=== PATIENT | female | born 1930 | race Caucasian/White ===

== ENCOUNTER → 2018-02-04 | Outpatient (CLI) | payer MEDICARE, BC ==
[~2018-02-04] MED LIST: ASPIR-LOW81 MG PO; FOSAMAX PO; ZOCOR40 MG PO; ZOLOFT
== END ==
LOC: COL.PUL 10:59
DX: R05 Cough (principal); Z77.120 Contact with and (suspected) exposure to mold (toxic); Z87.891 Personal history of nicotine dependence

== ENCOUNTER 2020-04-21 18:07 | Emergency (ER) | payer MEDICARE, BC ==
[~2020-04-21] VITALS: Ht 152.4 cm; Wt 56.8 kg
[2020-04-21 18:11] VITALS: TEMP 97.4
[2020-04-21] MEDS ORDERED: REMERON30 MG PO (18:32)
[2020-04-21] MEDS ORDERED: CRESTOR 10MG10 MG PO (18:32)
[2020-04-21] MEDS ORDERED: PRINIVIL10 MG PO (18:32)
[2020-04-21] MEDS ORDERED: ZOLOFT 50MG50 MG PO (18:34)
[2020-04-21] MEDS ORDERED: NOVOLOG MIX 70/33 ML SQ (18:34)
[2020-04-21 18:48] LABS: BASO # 0.1 (0.0-0.2); BASO % 0.4 % (0.0-2.0); EOS # 0.3 (0.0-0.7); EOS % 1.7 % (0-4.0); GRAN # 13.5 (1.4-6.5); GRAN % 73.4 % (42.2-75.2); HEMOGLOBIN 11.7 g/dl (12.5-16.0); LYMPH # 3.1 (1.2-3.4); LYMPH % 16.8 % (20.0-51.0); MEAN CELL VOLUME 89 fl (80.0-100.0); MEAN CORPUSCULAR HEMOGLOBIN 28 pg (27.0-31.0); MEAN CORPUSCULAR HGB CONC 32 g/dl (33.0-37.0); MEAN PLATELET VOLUME 12.6 fl (7.4-10.4); MONO # 1.3 (0.1-0.6); MONO % 7.1 % (1.7-9.3); PLATELET COUNT 127 K/mm3 (130-400); RED BLOOD COUNT 4.18 M/mm3 (4.10-5.30); REDCELL DISTRIBUTION WIDTH-CV 14.7 % (11.5-14.5)
[2020-04-21 19:00] LABS: ALANINE AMINOTRANSFERASE 23 U/L (4-34); ALBUMIN 3.9 gm/dL (3.5-5.0); ALKALINE PHOSPHATASE 79 U/L (50-136); ANION GAP 10 mmol/L (7-16); AST,SGOT 30 U/L (15-37); BILIRUBIN,TOTAL 0.5 mg/dL (0.0-1.0); BLOOD UREA NITROGEN 30 mg/dL (7-17); CALCIUM 9.1 mg/dL (8.4-10.2); CARBON DIOXIDE 24 mmol/L (22-30); CHLORIDE 103 mmol/L (98-107); CREATININE, serum 0.78 (0.52-1.25); GLUCOSE 129 mg/dL (74-106); POTASSIUM 4.5 mmol/L (3.4-5.0); SODIUM 137 mmol/L (137-145); TOTAL PROTEIN 6.9 gm/dL (6.4-8.2)
[2020-04-21 19:11] LABS: TROPONIN-I < 0.012 ng/mL (0.000-0.035)
[2020-04-21 22:09] LABS: COLLECTION METHOD CATHETER
[2020-04-21 22:14] LABS: PH 5 (5-8); SQUAMOUS EPITHELIAL 0-2 /hpf; URINE APPEARANCE Clear; URINE BACTERIA None Seen /hpf; URINE BILIRUBIN Negative (NEGATIVE); URINE BLOOD Negative (NEGATIVE); URINE COLOR Yellow; URINE GLUCOSE Negative (NEGATIVE); URINE KETONE Negative (NEGATIVE); URINE LEUKOCYTE ESTERASE Negative (NEGATIVE); URINE NITRATE Negative (NEGATIVE); URINE PROTEIN(semi-quant) Negative (NEGATIVE); URINE RBC 0-2 /hpf; URINE UROBILINOGEN Negative (NEGATIVE)
[2020-04-21 23:43] VITALS: BP 116/70; PULSE 62
== END 2020-04-21 23:43 | disposition home or self-care (01) ==
LOC: COL.ER 18:07
PROVIDERS: Emergency Medicine
DX: S09.90XA Unspecified injury of head, initial encounter (principal); S00.83XA Contusion of other part of head, initial encounter; M54.5 Low back pain; E11.9 Type 2 diabetes mellitus without complications; I10 Essential (primary) hypertension; Z88.2 Allergy status to sulfonamides; Z79.4 Long term (current) use of insulin; W01.198A Fall on same level from slipping, tripping and stumbling with subsequent striking against other object, initial encounter
CPT/HCPCS: J1885; J7040

== ENCOUNTER 2020-07-18 14:51 | Emergency (ER) | payer MEDICARE, BC ==
[~2020-07-18] VITALS: Ht 167.6 cm; Wt 63.6 kg
[~2020-07-18 14:51] MED LIST changes: +CRESTOR 10MG10 MG PO; +NOVOLOG MIX 70/33 ML SQ; +PRINIVIL10 MG PO; +REMERON30 MG PO; +ZOLOFT 50MG50 MG PO
[2020-07-18 15:04] VITALS: TEMP 96.6
[2020-07-18 16:08] LABS: HEMATOCRIT 38.6 % (37.0-47.0); MEAN CELL VOLUME 83 fl (80.0-100.0); MEAN CORPUSCULAR HEMOGLOBIN 26 pg (27.0-31.0); MEAN CORPUSCULAR HGB CONC 31 g/dl (33.0-37.0); MEAN PLATELET VOLUME 12.6 fl (7.4-10.4); PLATELET COUNT 221 K/mm3 (130-400); RED BLOOD COUNT 4.68 M/mm3 (4.10-5.30); REDCELL DISTRIBUTION WIDTH-CV 14.9 % (11.5-14.5)
[2020-07-18 16:26] LABS: ALBUMIN 3.8 gm/dL (3.5-5.0); BILIRUBIN,TOTAL 0.5 mg/dL (0.0-1.0); C-REACTIVE PROTEIN 1.1 mg/dL (0.0-0.9); CALCIUM 8.9 mg/dL (8.4-10.2); CREATININE, serum 0.57 (0.52-1.25); POTASSIUM 4.1 mmol/L (3.4-5.0)
[2020-07-18 16:53] LABS: BAND 7 % (0-10); EOSINOPHIL 7 % (0-4); LYMPHOCYTE 16 % (20.0-51.0); NEUTROPHILS 53 % (42.0-75.2)
[2020-07-18 16:54] LABS: HYPOCHROMIA 2+; MICROCYTOSIS 1+
[2020-07-18 16:55] LABS: PLATELET ESTIMATE NORMAL (NORMAL)
[2020-07-18 16:56] LABS: SCHISTOCYTES 1+; SPHEROCYTE 1+
[2020-07-18 17:29] LABS: COLLECTION METHOD CLEAN CATCH
[2020-07-18 17:41] LABS: PH 5 (5-8); SQUAMOUS EPITHELIAL None Seen /hpf; URINE APPEARANCE Clear; URINE BACTERIA None Seen /hpf; URINE BILIRUBIN Negative (NEGATIVE); URINE BLOOD Negative (NEGATIVE); URINE COLOR Yellow; URINE GLUCOSE Negative (NEGATIVE); URINE KETONE Negative (NEGATIVE); URINE LEUKOCYTE ESTERASE Negative (NEGATIVE); URINE NITRATE Negative (NEGATIVE); URINE PROTEIN(semi-quant) Negative (NEGATIVE); URINE RBC 0-2 /hpf; URINE UROBILINOGEN Negative (NEGATIVE)
[2020-07-18 18:55] VITALS: BP 164/85; PULSE 87
[2020-07-19 08:12] LABS: PATHOLOGY DIFF REVIEW OK
== END 2020-07-18 18:50 | disposition home or self-care (01) ==
LOC: COL.ER 14:51
PROVIDERS: Physician Assistant
DX: M54.10 Radiculopathy, site unspecified (principal); I10 Essential (primary) hypertension; E11.9 Type 2 diabetes mellitus without complications; Z85.6 Personal history of leukemia; Z88.2 Allergy status to sulfonamides; Z79.4 Long term (current) use of insulin
CPT/HCPCS: J1885; J3010; J7030

== ENCOUNTER 2020-09-06 22:27 | Observation (INO) | payer MEDICARE, BC ==
[~2020-09-06] VITALS: Ht 147.3 cm; Wt 49.5 kg
[2020-09-06 22:54] LABS: HEMATOCRIT 38.9 % (37.0-47.0); HEMOGLOBIN 12.1 g/dl (12.5-16.0); MEAN CELL VOLUME 84 fl (80.0-100.0); MEAN CORPUSCULAR HEMOGLOBIN 26 pg (27.0-31.0); MEAN CORPUSCULAR HGB CONC 31 g/dl (33.0-37.0); MEAN PLATELET VOLUME 11.7 fl (7.4-10.4); PLATELET COUNT 238 K/mm3 (130-400); RED BLOOD COUNT 4.65 M/mm3 (4.10-5.30); REDCELL DISTRIBUTION WIDTH-CV 17.6 % (11.5-14.5)
[2020-09-06 23:04] LABS: PARTIAL THROMBOPLASTIN TIME 28.7 SECONDS (26.0-37.0)
[2020-09-06 23:05] LABS: ALBUMIN 3.8 gm/dL (3.5-5.0); BILIRUBIN,TOTAL 0.2 mg/dL (0.0-1.0); CALCIUM 8.8 mg/dL (8.4-10.2); CREATININE, serum 0.61 (0.52-1.25); POTASSIUM 4.5 mmol/L (3.4-5.0); TOTAL PROTEIN 7.1 gm/dL (6.4-8.2)
[2020-09-06 23:10] LABS: BAND 1 % (0-10); BASOPHIL 3 % (0-2); EOSINOPHIL 5 % (0-4); LYMPHOCYTE 12 % (20.0-51.0); NEUTROPHILS 73 % (42.0-75.2)
[2020-09-06 23:11] LABS: ANISOCYTOSIS 1+; HYPOCHROMIA 2+; PLATELET ESTIMATE NORMAL (NORMAL)
[2020-09-07 00:09] LABS: COLLECTION METHOD CLEAN CATCH
[2020-09-07 00:14] LABS: PH 6 (5-8); SQUAMOUS EPITHELIAL None Seen /hpf; URINE APPEARANCE Clear; URINE BACTERIA Rare /hpf; URINE BILIRUBIN Negative (NEGATIVE); URINE BLOOD Negative (NEGATIVE); URINE COLOR Yellow; URINE GLUCOSE Negative (NEGATIVE); URINE KETONE Negative (NEGATIVE); URINE LEUKOCYTE ESTERASE Negative (NEGATIVE); URINE NITRATE Negative (NEGATIVE); URINE PROTEIN(semi-quant) Negative (NEGATIVE); URINE RBC 0-2 /hpf; URINE UROBILINOGEN Negative (NEGATIVE)
[2020-09-07] MEDS ORDERED: PREDNISONE 2.52.5 MG PO (01:24)
[2020-09-07] MEDS ORDERED: SSD25 GM TP (01:24)
[2020-09-07] MEDS ORDERED: ILOTYCIN5 MG/GM OP (01:25)
[2020-09-07] MEDS ORDERED: NOVOLOGMIX70/30 SQ (01:47)
[2020-09-07] MEDS ORDERED: NOVOLOG MIX 70/33 ML SQ (01:47)
[2020-09-07 04:00] VITALS: BP 170/68; PULSE 90; TEMP 98.3
--- NOTE | 2020-09-07 07:19 | NUR ---
Patient asleep in bed at this time. No signs of pain, discomfort, or needs at this time. Will continue to monitor. Call light within reach. Fall precautions in place.
[2020-09-07 08:20] VITALS: BP 175/55; PULSE 81; TEMP 97.6
[2020-09-07 11:34] VITALS: BP 134/77; PULSE 53; TEMP 98.3
--- NOTE | 2020-09-07 16:16 | NUR ---
Stylist Assistant met with patient to discuss discharge planning. Patient's nephew, Dandre and his , Katy (ph#[phone]) are at bedside. Patient lives alone in [place] and reports that she has neighbors and family that come and check on her often. Patient sees Dr. Harden for primary care and has medications delivered to her home by [facility]. Patient uses a rollator for ambulation and also has a wheelchair and shower chair at home. Patient reports she has in home services through [facility] as well as [facility]. Katy advised that she does all grocery shopping for patient. Katy also presented most updated copy of patient's DPOA-HC paperwork. SW placed a copy in patient's chart. NEYMAR reviewed PT/OT recommendation for post acute vs home with home health services. Patient states she wants to go home and has used [facility] in the past. Patient is open to using them again. NEYMAR contacted Lucy at [facility] and faxed referral. Discharge Plan: Home with [facility]
[2020-09-07 16:18] VITALS: BP 129/55; PULSE 93; TEMP 98.5
[2020-09-07] MEDS ORDERED: B COMPLEX #11 TA1 PO (17:20)
[2020-09-07] MEDS ORDERED: ASPIRIN E.C. 8181 MG PO (17:21)
[2020-09-07] MEDS ORDERED: OMEGA-31 SGL PO (17:23)
[2020-09-07] MEDS ORDERED: CALCIUM CITRAT950 MG (17:23)
[2020-09-07] MEDS ORDERED: OSTEO-BI-FLEX 21 TAB PO (17:24)
[2020-09-07] MEDS ORDERED: ESTROVEN MAX400 MCG (17:25)
[2020-09-07] MEDS ORDERED: ALEVE 220MG220 MG PO (17:26)
[2020-09-07] MEDS ORDERED: CVS GLUCOSE BIT1 CTB (17:28)
--- NOTE | 2020-09-07 19:25 | NUR ---
Patient has had an uneventful day. PT did an eval on patient, still awaiting results. Home health referral put in by Social work. Patient has denied pain and discomfort. Scheduled meds given. Upon assessment of lungs, pleural rubs were heard bilaterally in the lower lobes. No SOA reported. VSS. Niece and Nephew have been at the bedside a majority of the day. Updated med list recieved from family, med rec done. IV on right forearm infiltrated. New site started in left AC. Bedside report given to ADOLFO Montero. Call light within reach. Fall precautions in place.
[2020-09-07 19:43] VITALS: BP 138/48; PULSE 100; TEMP 98
[2020-09-07 20:10] VITALS: BP 169/58; PULSE 53
[2020-09-08] VITALS (7 sets, daily range): BP systolic 121–143; BP diastolic 55–60; PULSE 50–84; TEMP 97.5–98.4
--- NOTE | 2020-09-08 05:39 | NUR ---
PATIENT HAD RESTFUL NIGHT; NO CARES OR CONCERNS VOICED THIS SHIFT.
--- NOTE | 2020-09-08 07:22 | NUR ---
Patient asleep in bed at this time. No signs of pain, discomfort, or needs. Will continue to monitor. Call light within reach. Fall precautions in place.
--- NOTE | 2020-09-08 09:18 | NUR ---
Scheduled medications given. Assessments performed. Patient is A&O. Pleural rub heard in lung bases. Upper lobes clear. Patient taken to the restroom with the assistance of the RN. Patient denies any pain, discomfort, or futher needs at this time. Will continue to monitor. Call light within reach. Fall precautions in place.
[2020-09-08 11:01] LABS: BASO # 0.1 (0.0-0.2); BASO % 0.7 % (0.0-2.0); EOS % 5.5 % (0-4.0); GRAN # 12.5 (1.4-6.5); HEMATOCRIT 38.4 % (37.0-47.0); LYMPH # 2.3 (1.2-3.4); MEAN CELL VOLUME 84 fl (80.0-100.0); MEAN CORPUSCULAR HEMOGLOBIN 26 pg (27.0-31.0); MEAN CORPUSCULAR HGB CONC 31 g/dl (33.0-37.0); MEAN PLATELET VOLUME 12.5 fl (7.4-10.4); MONO # 1.4 (0.1-0.6); MONO % 8.2 % (1.7-9.3); PLATELET COUNT 234 K/mm3 (130-400); RED BLOOD COUNT 4.57 M/mm3 (4.10-5.30)
[2020-09-08 11:12] LABS: CALCIUM 8.6 mg/dL (8.4-10.2); CREATININE, serum 0.67 (0.52-1.25); POTASSIUM 4.1 mmol/L (3.4-5.0)
--- NOTE | 2020-09-08 13:19 | NUR ---
Patient and patient's family updated on plan of care. Patient taken to the restroom, positioned back in bed with head elevated so the she is able to eat lunch. Patient denies any pain, discomfort, or futher needs at this time. Will continue to monitor. Call light within reach. Fall precautions in place.
--- NOTE | 2020-09-08 18:43 | NUR ---
Patient has had an uneventful day. Lasix started. Patient has been accepted into [facility]. Doctor will revaluate in the am. Possible discharge. Patient denies any pain, discomfort, or further needs at this time. Will continue to monitor. Call light in reach. Fall precautions in place.
--- NOTE | 2020-09-08 20:00 | NUR ---
Report received, assumed care for overnight stocker. Assessment complete. VS stable. A&Ox3. Denies nausea/shortness of breath. States she will get a little short of air with actiivty. Noted to have bilat pedal edema-+1. Neuro checks WNL. INT to right FA flushes withot difficulty. Stage II to coccyx-red and healing-open to air. Left inner thigh-stage I-healing. Plan of care discussed for this shift to include HS meds/calling for questions/concerns. Verbalizes understanding/denies needs. Call light in reach. WIll monitor.
[2020-09-09] VITALS (7 sets, daily range): BP systolic 114–141; BP diastolic 42–63; PULSE 46–95; TEMP 97.9–98.7
--- NOTE | 2020-09-09 01:00 | NUR ---
Resting eyes closed. NO s/s of pain noted. Will monitor.
--- NOTE | 2020-09-09 05:06 | NUR ---
Rested well this shift. Denied pain/nausea/shortness of breath. VS remained stable. Neuros WNL. Voiding without difficulty. Denies current needs. Call light in reach. Will monitor.
--- NOTE | 2020-09-09 06:50 | NUR ---
Patient resting in bed at this time. No signs of pain, discomfort, or further needs at this time. Will continue to monitor. Call light within reach. Fall precautions in place.
[2020-09-09 07:38] LABS: HEMOGLOBIN 11.5 g/dl (12.5-16.0); MEAN CELL VOLUME 83 fl (80.0-100.0); MEAN CORPUSCULAR HEMOGLOBIN 26 pg (27.0-31.0); MEAN CORPUSCULAR HGB CONC 32 g/dl (33.0-37.0); PLATELET COUNT 241 K/mm3 (130-400); RED BLOOD COUNT 4.38 M/mm3 (4.10-5.30); REDCELL DISTRIBUTION WIDTH-CV 17.9 % (11.5-14.5)
[2020-09-09 07:43] LABS: HEMATOCRIT 36.3 % (37.0-47.0)
[2020-09-09 07:54] LABS: CALCIUM 8.1 mg/dL (8.4-10.2); CREATININE, serum 0.75 (0.52-1.25); MAGNESIUM 2.1 mg/dL (1.6-2.3); POTASSIUM 4.1 mmol/L (3.4-5.0)
--- NOTE | 2020-09-09 10:21 | NUR ---
Scheduled medications given. Assessments performed. Crackles are present in patient's lower lobes bilaterally. Xray ordered. Patient denies any pain, discomfort, N/V, SOA, or futher needs at this time. Will continue to monitor. Call light within reach. Fall precautions in place.
--- NOTE | 2020-09-09 13:33 | NUR ---
Lasix and Potassium given. Patient denies any further needs at this time. Will continue to monitor. Call light within reach. Fall precautions in place.
--- NOTE | 2020-09-09 17:30 | NUR ---
Patient has had an uneventful day. Patient has been using the restroom quite frequently due to IV lasix. Patient has not required any insulin during this shift. Patient denies any pain, discomfort, or futher needs at this time. VSS. Will continue to monitor. Call light within reach. Fall precautions in place.
--- NOTE | 2020-09-09 20:00 | NUR ---
Assessment complete. Patient is alert and oriented with no complaints of pain. She is breathing RA and only becomes SOA with exertion. Lungs are clear in upper lobes with fine crackles in bases. Her coccyx is redenned; Patient states she fell on ice a couple months ago and it has been that way since; Silvadene cream applied per orders. LLE is more edematous than right, which patient states is chronic. No new concerns, Call light in reach.
[2020-09-10 04:12] VITALS: BP 102/47; PULSE 91; TEMP 97.7
[2020-09-10 06:20] LABS: HEMATOCRIT 37.8 % (37.0-47.0); HEMOGLOBIN 11.9 g/dl (12.5-16.0); MEAN CELL VOLUME 83 fl (80.0-100.0); MEAN CORPUSCULAR HEMOGLOBIN 26 pg (27.0-31.0); MEAN CORPUSCULAR HGB CONC 32 g/dl (33.0-37.0); MEAN PLATELET VOLUME 11.6 fl (7.4-10.4); PLATELET COUNT 266 K/mm3 (130-400); RED BLOOD COUNT 4.58 M/mm3 (4.10-5.30); REDCELL DISTRIBUTION WIDTH-CV 17.9 % (11.5-14.5)
[2020-09-10 06:47] LABS: CREATININE, serum 1.12 (0.52-1.25); POTASSIUM 4.4 mmol/L (3.4-5.0)
[2020-09-10 08:03] VITALS: BP 122/59; PULSE 77; TEMP 97.7
--- NOTE | 2020-09-10 09:10 | NUR ---
Pt awake and alert sitting in the recliner upon entry to room, no C/O pain at this time, pleasant and talkative. Shift assessments complete, left Pt call light in reach, bed in lowest position.
[2020-09-10 12:23] VITALS: BP 106/56; PULSE 60; TEMP 97.9
--- NOTE | 2020-09-10 14:10 | NUR ---
[employer] staffed with PA regarding the patient's discharge. The patient would like post acute rehab. Since the patient is obs status and would be private pay at a SNF, SW sent referral to [facility]. They accepted. The patient is to discharge to [facility] today, 09/10 for post acute rehab. The patient, patient's daughter Katy, and the team were in agreeance. SW contacted [facility] to provide the above update. There are no additional needs.
--- NOTE | 2020-09-10 16:45 | NUR ---
Pt transferred to IPR, transferred by WC.
[2020-09-11] MEDS ORDERED: SYSTANE 0.4%-0.1 SOL (19:23)
[2020-09-11] MEDS ORDERED: OCUVITE1 TA1 PO ×2 (19:28)
[2020-09-11] MEDS ORDERED: SYSTANE 0.4%-0.1 SOL OP (19:29)
== END 2020-09-10 17:11 ==
LOC: COL.ER 22:27 → MEDICAL 09-07 00:52
PROVIDERS: Emergency Medicine; Physician Assistant; ADMIT Family Medicine
DX: S09.90XA Unspecified injury of head, initial encounter (principal); R60.0 Localized edema; I11.0 Hypertensive heart disease with heart failure; I50.30 Unspecified diastolic (congestive) heart failure; I27.20 Pulmonary hypertension, unspecified; J98.11 Atelectasis; I49.8 Other specified cardiac arrhythmias; I48.91 Unspecified atrial fibrillation; E78.5 Hyperlipidemia, unspecified; E11.9 Type 2 diabetes mellitus without complications; Z79.4 Long term (current) use of insulin; M48.02 Spinal stenosis, cervical region; C91.11 Chronic lymphocytic leukemia of B-cell type in remission; M19.90 Unspecified osteoarthritis, unspecified site; F41.9 Anxiety disorder, unspecified; F32.9 Major depressive disorder, single episode, unspecified; I08.3 Combined rheumatic disorders of mitral, aortic and tricuspid valves; Z92.21 Personal history of antineoplastic chemotherapy; W18.30XA Fall on same level, unspecified, initial encounter; Z91.81 History of falling; Y93.01 Activity, walking, marching and hiking; Y92.092 Bedroom in other non-institutional residence as the place of occurrence of the external cause; Z79.899 Other long term (current) drug therapy; Z79.52 Long term (current) use of systemic steroids
CPT/HCPCS: 99232-AI; A9284; G0378; J1815; J1940; J7040; J7512

== ENCOUNTER 2020-09-10 13:23 | Inpatient (IN) | payer MEDICARE, BC ==
[~2020-09-10] VITALS: Ht 121.9 cm; Wt 49.9 kg
[~2020-09-10 13:23] MED LIST changes: +ALEVE 220MG220 MG PO; +ASPIRIN E.C. 8181 MG PO; +B COMPLEX #11 TA1 PO; +CALCIUM CITRAT950 MG; +CVS GLUCOSE BIT1 CTB; +ESTROVEN MAX400 MCG; +ILOTYCIN5 MG/GM OP; +NOVOLOGMIX70/30 SQ; +OMEGA-31 SGL PO; +OSTEO-BI-FLEX 21 TAB PO; +PREDNISONE 2.52.5 MG PO; +SSD25 GM TP
--- NOTE | 2020-09-10 19:15 | NUR ---
RECEIVED CHANGE OF SHIFT REPORT FROM DAY SHIFT NURSE.
[2020-09-10 19:24] VITALS: BP 128/53; PULSE 84; TEMP 97.7
--- NOTE | 2020-09-10 19:39 | NUR ---
REPORT RECEIVED FORM MEDICAL NURSE GENARO, PT BROUGHT OVER VIA WC TO ROOM 336 AROUND [phone]. PT TRANSFERRED TO BED AND ORIENTED TO UNIT, MED REC COMPLETED, ADMISSION PAPERS SIGNED. PT TO BRING SOME MEDS FROM HOME THAT PHARMACY DOES NOT STOCK.
--- NOTE | 2020-09-10 20:00 | NUR ---
DENIES CHEST PAIN/SOA. DENIES NUMBNESS/TINGLING TO EXTREMITIES. VERY DRY CREEK BUT ABLE TO FOLLOW COMMANDS, OBSERVED NEEDING FREQUENT CUES ON USING WW CORRECTLY, OBSERVED STOOPED POSTURE WHEN AMBULATING AND PUSHING WW FARTHER OUT IN FRONT OF HER WHEN AMBULATING. BED ALARM ON WHEN IN BED
[2020-09-11 04:34] VITALS: BP 130/56; PULSE 76; TEMP 98.1
--- NOTE | 2020-09-11 07:02 | NUR ---
CHANGE OF SHIFT REPORT GIVEN TO DAY SHIFT NURSE, VIKTORIYA MATA.
--- NOTE | 2020-09-11 09:16 | NUR ---
PT REPORTS SLEEPING WELL OVERNIGHT. NO COMPLAINTS OF PAIN THIS AM. CREAM TO BUTTOCKS AND JOSE GRESHAM PLACED THIS AM.
--- NOTE | 2020-09-11 10:03 | NUR ---
Initial visit; Patient thanked [employer] for looking in on her and offering God's blessings and to keep her in [employer]'s prayers.
--- NOTE | 2020-09-11 13:53 | NUR ---
SW met with the patient, her sister (Halley, ph#[phone]), and niece (Katy, ph#[phone]) to complete intake, as the patient is new to [facility]. The patient lives alone in [place]. Katy reports that they lives outside of [place], about twenty minutes away from the patient. The patient reports that she received supervision with her baths and has a rolaider and wheelchair. She has private duty services for light housekeeping from [facility] and had just got home health services set up through [facility]. The patient's PCP is Dr. Christopher Harden and she receives her medications from [facility] [place]. The patient has a DPOA-HC in EMR. The patient's niece, Katy, reports that the patient has an updated DPOA-HC that designates her. NEYMAR requested that Katy bring in the updated DPOA-HC to the hospital. Katy reports that she can. SW answered all questions. SW to continue to follow.
[2020-09-11 17:01] VITALS: BP 121/56; PULSE 44; TEMP 98.6
--- NOTE | 2020-09-11 18:46 | NUR ---
RECEIVED CHANGE OF SHIFT REPORT FROM DAY SHIFT NURSE.
--- NOTE | 2020-09-11 18:48 | NUR ---
PT'S BLOOD SUGARS HAVE BEEN LOW IN BETWEEN MEALS TODAY, SSL WAS ORDERED BY YANCI RAMON BUT 70/30 FLEXPEN WAS CONTINUED. CALLED OSIRIS RAMON TO CLARIFY AND FLEXPEN WAS PUT ON HOLD FOR LOW SUGARS TODAY, TO TEST SSL. PT'S IV TO RT AC WAS REMOVED PER YANCI RAMON.
[2020-09-11] MEDS ORDERED: SYSTANE 0.4%-0.1 SOL (19:23)
[2020-09-11] MEDS ORDERED: OCUVITE1 TA1 PO ×2 (19:28)
[2020-09-11] MEDS ORDERED: SYSTANE 0.4%-0.1 SOL OP (19:29)
--- NOTE | 2020-09-11 20:00 | NUR ---
DENIES CHEST PAIN/SOA. REPORT KNEE PAIN. BED ALARM ON. DENIES NUMBNESS/TINGLING TO EXTREMITIES.
--- NOTE | 2020-09-12 02:14 | NUR ---
PATIENT SLEEPING, BREATHING EVEN AND NONLABORED. BED ALARM ON. DOES NOT WAKEN WHEN ROOM ENTERED BY STAFF.
[2020-09-12 05:49] VITALS: BP 136/46; PULSE 78; TEMP 98
--- NOTE | 2020-09-12 06:14 | NUR ---
DISCUSSED WITH PATIENT OPTION TO GET FLU VACCINE WITH PATIENT REQUESTING FLU SHOT. PATIENT REPORTS HAS SOME KNEE PAIN AND REFUSED OFFER OF PAIN MED, WANTING TO USE THERMAL HEATING PAD FOR PAIN MANAGEMENT OF KNEE PAIN AT THIS TIME.
--- NOTE | 2020-09-12 07:26 | NUR ---
CHANGE OF SHIFT REPORT GIVEN TO DAY SHIFT NURSE, CHRIS MATA.
[2020-09-12 07:40] LABS: CALCIUM 8.9 mg/dL (8.4-10.2); CREATININE, serum 0.81 (0.52-1.25); POTASSIUM 4.8 mmol/L (3.4-5.0)
--- NOTE | 2020-09-12 08:33 | NUR ---
Patient resting in bed getting ready to start Speech Therapy this morning. Will continue to monitor.
--- NOTE | 2020-09-12 14:40 | NUR ---
SW met with the patient to present and review the IPR Team Conference Note. SW discussed the team's recommendation to re-eval next week and how they would like to set up a patient/family meeting next Thursday. The patient was agreeable to the plan. SW attempted to contact the patient's niece, Katy, to update and to schedule the family meeting. SW left her a voicemail. SW attempted to contact the patient's sister, Halley. Halley's phone would not ring. SW to attempt to get in touch with the patient's niece at a later time.
--- NOTE | 2020-09-12 14:45 | NUR ---
The patient's niece, Katy, returned NEYMAR's phone call. NEYMAR provided her with an update. The team meeting on Thursday has not been scheduled yet. The patient/family meeting has tentatively been set up for next Thursday around [id number]. Katy reports that she would be available around that time.
[2020-09-12 16:10] VITALS: BP 125/69; PULSE 97; TEMP 98.3
--- NOTE | 2020-09-12 18:02 | NUR ---
Patient attended all therapies this shift. She was CGA with transfer to bathroom. She wears a heating pad on her bilateral knees to help with arthritis pain. Tolerating diet well this shift. Was independent with her meals this shift. She is currently resting in recliner, call light in reach and alarm set. Will continue to monitor.
[2020-09-13 05:16] VITALS: BP 126/62; PULSE 81; TEMP 98
--- NOTE | 2020-09-13 05:57 | NUR ---
PATIENT RESTED QUIETLY IN BED THROUGHOUT THE NIGHT. SHE WAS UP TO THE BATHROOM 3 X'S THROUGHOUT THE SHIFT. NO NEW ISSUES NOTED OR REPORTED BY PATIENT.
--- NOTE | 2020-09-13 07:34 | NUR ---
Patient resting in bed, call light in reach and bed alarm set. Patient eating breakfast at this time.
--- NOTE | 2020-09-13 10:52 | NUR ---
Patient with Group Therapy at this time.
--- NOTE | 2020-09-13 11:05 | NUR ---
Patient requested a flu shot upon admission, but this nurse received report from pharmacy that we are currently not giving the flu shot at this time. This will be communicated to the patient.
--- NOTE | 2020-09-13 14:48 | NUR ---
The patient's niece, Katy, provided IPR Director with the patient's General DPOA, which includes healthcare decisions. The document was placed in the patient's chart.
--- NOTE | 2020-09-13 15:37 | NUR ---
Patient has visitors this afternoon; a sister and her friend. Patient attended all her therapies this shift. Tolerated diet well. Her dressing to her bottom was changed this afternoon. She has a Stage I ulcer to her bottom that is non blanchable and another area that looks like it had originally been open that is closed and healing well. Applied Aquacel AG to closed healing area and ointment over non blanchable red area then secured with a mepilex. Patient tolerated well. She does report pain to her coccyx when sitting in her chair and she has been educated on the need to rotate from side to side to prevent any further breakdown on her bottom. Will continue to educate.
[2020-09-13 17:54] VITALS: BP 128/46; PULSE 87; TEMP 97.9
--- NOTE | 2020-09-13 21:00 | NUR ---
PT RESTING IN BED. A&OX4. PLEASANT AND COOPERATIVE. ASSISTED TO BR WITH WW. HAD BROWN MED SF BM. PT ABLE TO MANAGE TOILETING HYGIENE PER SELF. NEEDED ASSIST WITH CHANGING TO PJ'S- (PANTS). PT ABLE TO LIFT LEGS INTO BED. NOTED INVOLUNTARY MOVEMENT OF BILAT LEGS. SEE MAR FOR TYLENOL GIVEN FOR BILAT LEG/KNEE PAIN. USES KPAD PRN. CALL LIGHT IN REACH. BED ALARM SET.
[2020-09-14 05:34] VITALS: BP 174/61; PULSE 75; TEMP 97.7
--- NOTE | 2020-09-14 08:37 | NUR ---
PT DENIES ANY PAIN OR COMPLAINTS THIS AM. RECEIVED AM MEDS PRIOR TO THERAPY.
--- NOTE | 2020-09-14 10:16 | NUR ---
NEYMAR met the patient to follow up before the weekend. The patient was having a snack in-between therapy. The patient reports that she is doing pretty good. She states that therapy wore her out this morning and that she is just getting some rest in before her next session. She had no questions for NEYMAR at this time.
--- NOTE | 2020-09-14 13:26 | NUR ---
Admission QIM scores were reviewed by the team. Code of 5 chosen for eating was determined by team discussion to be the most usual performance for this patient during the assessment period. Code of 3 chosen for lying to sitting on side of bed was determined by team discussion to be the most usual performance for this patient during the assessment period. Code of 3 for sit to stand was determined by team discussion to be the most usual performance for this patient during the assessment period.--Iza Phillips, PD
[2020-09-14 16:34] VITALS: BP 124/53; PULSE 84; TEMP 98.1
--- NOTE | 2020-09-14 18:27 | NUR ---
PT COMPLAINED OF MILD ACHES IN ARMANDO KNEES AFTER THERAPY. UTILIZED HEAT THERAPY WHILE IN BED. PT HAD S SF BM AND PERFORMED OWN HYGIENE. NO ISSUES TODAY.
--- NOTE | 2020-09-14 21:00 | NUR ---
PT RESTING IN BED. WATCHING TV. USING KPAD FOR KNEE DISCOMFORT PRN. HAS INVOLUNTARY MOVEMENT OF BLE. NO NEEDS AT THIS TIME. CALL LIGHT IN REACH. BED ALARM AET.
[2020-09-15 05:32] VITALS: BP 144/68; PULSE 81; TEMP 97.8
--- NOTE | 2020-09-15 07:40 | NUR ---
Patient resting in bed, call light in reach awaiting her morning therapies. Will continue to monitor.
--- NOTE | 2020-09-15 10:49 | NUR ---
Patient was was set up only with upper dressing and touch assist with lower dressing. Patient was set up for oral hygiene. She attended group therapy this morning. Tolerated breakfast well. Currently resting in recliner, call light in reach and alarm set. Will continue to monitor.
[2020-09-15 16:03] VITALS: BP 121/48; PULSE 86; TEMP 98
--- NOTE | 2020-09-15 19:13 | NUR ---
Patient reported that she had some pain in her mouth. Upon observation found some redness inside bottom right lip and some pain on left inner cheek. See order for Lidocaine Viscous swish and spit.
--- NOTE | 2020-09-15 20:27 | NUR ---
PT ASSISTED TO BR. VOIDING W/O DIFFICULTY. HAVING SOME KNEE DISCOMFORT. SEE MAR FOR TYLENOL. PT ABLE TO CHANGE INTO NIGHT CLOTHES BUT NEEDED ASSIST DONNING PJ PANTS. READY FOR BED. PT ABLE TO LIFT LEGS INTO BED PER SELF. CALL LIGHT IN REACH. BED ALARM SET. PT HAS VISCOUS LIDOCAIN AT BEDSIDE FOR SORE GUMS CAUSED BY DENTURES. PT REPORTS ITS HELPING.
[2020-09-16 05:49] VITALS: BP 144/62; PULSE 72; TEMP 97.8
--- NOTE | 2020-09-16 07:46 | NUR ---
Patient was one assist to the bathroom using 4WW and gait belt. Patient still reporting pain to her mouth and using analgesic. Denies questions this morning. Currently eating breakfast, call light in reach and alarm is set.
--- NOTE | 2020-09-16 10:48 | NUR ---
Patient is resting in bed watching TV, call light in reach and bed alarm set.
--- NOTE | 2020-09-16 15:39 | NUR ---
Patient is a one assist with walking with 4WW and gait belt to the bathroom. She is currently resting in bed, call light in reach and alarm set.
[2020-09-16 15:56] VITALS: BP 133/54; PULSE 90; TEMP 98.1
--- NOTE | 2020-09-16 20:00 | NUR ---
ASSISTED TO BR. VOIDING W/O DIFFICULTY. SEEMS MORE STEADY TONIGHT WITH AMB. PT PERFORMED OWN TOILETING TASKS W/SBA. BACK TO BED. DENIES NEED FOR TYLENOL. STILL HAS CONTINUOUS INVOLUNTARY MOVEMENT OF LEGS WHEN IN BED. CALL LIGHT IN REACH. BED ALARM SET.
[2020-09-17 05:58] VITALS: BP 152/62; PULSE 77; TEMP 97.9
--- NOTE | 2020-09-17 13:44 | NUR ---
SW attempted to meet with the patient to follow up after the weekend. The patient was sleeping comfortably.
--- NOTE | 2020-09-17 15:17 | NUR ---
IPR Director notified SW that they have set a d/c date for this , 09/20, with home health and they want to resume services from [facility]. Team meeting has also been scheduled at 0930 on Thursday. NEYMAR met with the patient, her niece (Katy), and sister to schedule the family meeting. The family meeting was scheduled at 1300 on Thursday. IPR director is checking with the liquid floor and wall applier on whether Katy's can come in for the meeting. NEYMAR notified and faxed updates to Nathalie at [facility]. Nathalie reports that they can resume services upon discharge.
[2020-09-17 17:50] VITALS: BP 124/50; PULSE 85; TEMP 98.2
--- NOTE | 2020-09-17 17:50 | NUR ---
Patient resting in bedside recliner at this time. Patient remains alert and oriented, answers questions appropriately. Patient is moving very well with walker, no assistance required for transfers or ambulation. Has not displayed impulsive behaviors. Denies pain or needs, call light within reach, chair alarm on.
--- NOTE | 2020-09-17 19:30 | NUR ---
PATIENT WAS RECEIVED CALM IN THE ROOM WATCHING TV.DUE MEDS GIVEN.DENIES PAIN.NO OTHER NEEDS AT THIS TIME.
[2020-09-18 04:52] VITALS: BP 130/58; PULSE 59; TEMP 97
--- NOTE | 2020-09-18 13:55 | NUR ---
Katy's was approved to come in for the meeting. SW attempted to inform Katy. SW left her a voicemail.
[2020-09-18 17:31] VITALS: BP 119/43; PULSE 88; TEMP 97.9
--- NOTE | 2020-09-18 17:41 | NUR ---
Patient sitting at bedside eating dinner at this time. Patient remains alert and oriented, answers questions appropriately. Patient has been moving well in room with walker, SBA requiring no physical help. PT reports that they have made patient modified independent in room. Patient denies pain or further needs, call light within reach.
--- NOTE | 2020-09-18 20:35 | NUR ---
Assessment complete. Pt is AXO X3, denies having any pain at this time. Pt is lying in the bed watching TV at this time and she denies further needs. Call light within reach.
[2020-09-19 06:23] VITALS: BP 120/52; PULSE 63; TEMP 98.6
--- NOTE | 2020-09-19 08:17 | NUR ---
Patient independent in her room. Reports pain to bilateral knees and uses heating pad. Currently resting in bed, call light in reach. Will continue to monitor.
--- NOTE | 2020-09-19 10:52 | NUR ---
The team is recommending home health for PT/OT/ST. SW followed up with Nathalie at [facility] to inquire if they have ST. Nathalie reports that they do not have ST at this time. SW to update the patient and her family.
[2020-09-19] MEDS ORDERED: VOLTAREN GEL 1%1 TU TP (13:28)
[2020-09-19] MEDS ORDERED: LIDOCAINE HC20 MG/M2 MM (13:29)
[2020-09-19] MEDS ORDERED: LASIX 20MG TABL20 MG PO ×2 (13:30)
--- NOTE | 2020-09-19 14:44 | NUR ---
SW attended the patient/family meeting. The patient's niece (Katy), sister (Halley), and nephew (Dandre) were at bedside. Also present was IPR Director, PT, OT, and ST. IPR Director started by explaining the purpose of the meeting. PT/OT/ST then discussed the patient's progress so far and confirmed d/c date for tomorrow with PT/OT/ST/SN. SW informed them that [facility] unfortunately does not have ST and that they would have to choose another agency. The patient and her family were agreeable to the plan. The team answered all questions. SW then followed up with the patient and her family and provided them with the IPR Team Conference Note and Medicare.gov's list of home health agencies that serve [place]. The patient's family chose [facility]. SW contacted and faxed a referral to Cha at [facility]. Awaiting screen.
[2020-09-19 15:47] VITALS: BP 142/57; PULSE 98; TEMP 97.6
[2020-09-19 18:11] VITALS: BP 150/73
--- NOTE | 2020-09-19 19:35 | NUR ---
Patient attended all her therapies today. She is independent in her room with her walker. She tolerated her meals well this shift. Reported pain to her bilateral knees and was given prn Voltoran ointment with good effect this afternoon. Patient will be discharging tomorrow and her PCP appointment has been scheduled for September 27 at 10:30 am. Stage II ulcer is now a Stage I ulcer and mepilex is intact. Will continue to monitor.
--- NOTE | 2020-09-19 21:00 | NUR ---
PT RESTING IN BED. A&OX4. PT REPORTS VOLTAREN OINTMENT TO BILAT KNEES HELP WITH PAIN. APPLIED. NO NEEDS. SEE ASSESSMENT. CALL LIGHT IN REACH. BED ALARM SET.
[2020-09-20 05:30] VITALS: BP 123/54; PULSE 74; TEMP 98.5
--- NOTE | 2020-09-20 08:36 | NUR ---
Cha, at [facility], reports that they are able to accept the patient for services.
--- NOTE | 2020-09-20 09:08 | NUR ---
Patient resting in recliner, call light in reach and independent in her room.
--- NOTE | 2020-09-20 10:54 | NUR ---
The patient is to discharge back home today, 09/20, with home health services for mcfp/PT/OT/ST from [facility]. NEYMAR faxed the patient's d/c orders to Cha at [facility]. NEYMAR met with the patient and informed her of [facility]'s acceptance. NEYMAR also presented and read the IM form outloud to the patient. The patient verbalized understanding and gave NEYMAR approval to sign the form on her behalf. NEYMAR provided her with a copy. No additional needs at this time.
--- NOTE | 2020-09-20 13:00 | NUR ---
Reviewed discharge meds with patient. Called pharmacy of choice to verify meds, with the following meds called in: Crestor, Zoloft, Aspirin. Meds will be delivered to patient's home this afternoon after 4 PM. Patient denies questions at this time.
--- NOTE | 2020-09-20 15:29 | NUR ---
Patient Health Summary, Discharge Summary, and Home Meds printed and reviewed with patient and family members. Stressed importance of follow up appointments. Belongings gathered by PRAKASH/Chidi including hearing aids; systane eye drops; voltoran ointment; silvadine ointment; and misc. personal items including her egg crate cushion. Patient was transferred via wheelchair by RN/Sandy and seatbelted for ride home. Patient denied questions.
== END 2020-09-20 14:50 | disposition home health service (06) | DRG 948 ==
PROVIDERS: Physician Assistant; ADMIT Internal Medicine
DX: R53.81 Other malaise (principal); C91.10 Chronic lymphocytic leukemia of B-cell type not having achieved remission; I50.32 Chronic diastolic (congestive) heart failure; J98.11 Atelectasis; I27.20 Pulmonary hypertension, unspecified; L89.152 Pressure ulcer of sacral region, stage 2; I11.0 Hypertensive heart disease with heart failure; I48.91 Unspecified atrial fibrillation; M48.00 Spinal stenosis, site unspecified; E11.9 Type 2 diabetes mellitus without complications; M19.90 Unspecified osteoarthritis, unspecified site; F41.9 Anxiety disorder, unspecified; F32.9 Major depressive disorder, single episode, unspecified; M25.569 Pain in unspecified knee; H91.90 Unspecified hearing loss, unspecified ear; E78.5 Hyperlipidemia, unspecified; W18.30XA Fall on same level, unspecified, initial encounter; Y93.B9 Activity, other involving muscle strengthening exercises; Y92.239 Unspecified place in hospital as the place of occurrence of the external cause; Z79.52 Long term (current) use of systemic steroids; Z79.4 Long term (current) use of insulin; Z79.82 Long term (current) use of aspirin; Z88.2 Allergy status to sulfonamides; Z90.710 Acquired absence of both cervix and uterus; Z91.81 History of falling
CPT/HCPCS: 99222-AI; 99231-AI; 99232-AI; 99239; A9284; G0378; J1815; J1940; J7040; J7512

== ENCOUNTER 2020-11-09 11:08 | Inpatient (IN) | payer MEDICARE, BC ==
[~2020-11-09] VITALS: Ht 152.4 cm; Wt 49.5 kg
[~2020-11-09 11:08] MED LIST changes: +LASIX 20MG TABL20 MG PO; +LIDOCAINE HC20 MG/M2 MM; +OCUVITE1 TA1 PO; +SYSTANE 0.4%-0.1 SOL; +SYSTANE 0.4%-0.1 SOL OP; +VOLTAREN GEL 1%1 TU TP
[2020-11-09 11:52] LABS: BASO # 0.2 (0.0-0.2); BASO % 1.1 % (0.0-2.0); EOS # 1.2 (0.0-0.7); EOS % 5.4 % (0-4.0); GRAN # 17.4 (1.4-6.5); GRAN % 79.3 % (42.2-75.2); HEMOGLOBIN 11.6 g/dl (12.5-16.0); LYMPH # 1.4 (1.2-3.4); LYMPH % 6.2 % (20.0-51.0); MEAN CELL VOLUME 83 fl (80.0-100.0); MEAN CORPUSCULAR HEMOGLOBIN 26 pg (27.0-31.0); MEAN CORPUSCULAR HGB CONC 32 g/dl (33.0-37.0); MEAN PLATELET VOLUME 12.4 fl (7.4-10.4); MONO # 1.5 (0.1-0.6); MONO % 6.8 % (1.7-9.3); PLATELET COUNT 269 K/mm3 (130-400); RED BLOOD COUNT 4.41 M/mm3 (4.10-5.30); REDCELL DISTRIBUTION WIDTH-CV 15.1 % (11.5-14.5)
[2020-11-09 11:54] LABS: HEMATOCRIT 36.5 % (37.0-47.0)
[2020-11-09 12:32] LABS: ALBUMIN 3.4 gm/dL (3.5-5.0); BILIRUBIN,TOTAL 0.5 mg/dL (0.0-1.0); CALCIUM 8.7 mg/dL (8.4-10.2); CREATININE, serum 0.75 (0.52-1.25); POTASSIUM 4.6 mmol/L (3.4-5.0); TOTAL PROTEIN 6.8 gm/dL (6.4-8.2)
[2020-11-09 12:45] LABS: TROPONIN-I 0.014 ng/mL (0.000-0.035)
[2020-11-09] MEDS ORDERED: FARXIGA5 PO (14:49)
[2020-11-09] MEDS ORDERED: K-DUR 10 MEQ T10 MEQ PO (14:50)
[2020-11-09] MEDS ORDERED: LASIX 20MG TABL20 MG PO (14:50)
[2020-11-09 17:56] VITALS: BP 116/55; PULSE 91; TEMP 98.6
[2020-11-09 19:03] VITALS: BP 151/45; PULSE 93; TEMP 98.1
[2020-11-09 23:47] VITALS: BP 153/67; PULSE 112; TEMP 98.8
[2020-11-10 03:42] VITALS: BP 110/39; PULSE 117; TEMP 99.5
[2020-11-10 07:05] VITALS: BP 148/72; PULSE 125; TEMP 100.3
[2020-11-10 07:06] LABS: HEMOGLOBIN 10.6 g/dl (12.5-16.0); MEAN CELL VOLUME 86 fl (80.0-100.0); MEAN CORPUSCULAR HEMOGLOBIN 27 pg (27.0-31.0); MEAN CORPUSCULAR HGB CONC 31 g/dl (33.0-37.0); MEAN PLATELET VOLUME 12.8 fl (7.4-10.4); PLATELET COUNT 176 K/mm3 (130-400); RED BLOOD COUNT 3.97 M/mm3 (4.10-5.30); REDCELL DISTRIBUTION WIDTH-CV 15.1 % (11.5-14.5)
[2020-11-10 07:19] LABS: CALCIUM 8.2 mg/dL (8.4-10.2); CREATININE, serum 0.84 (0.52-1.25); POTASSIUM 4.1 mmol/L (3.4-5.0)
[2020-11-10 11:08] VITALS: BP 153/79; PULSE 112; TEMP 99.9
[2020-11-10 17:39] VITALS: BP 126/55; PULSE 84; TEMP 98.7
[2020-11-10 17:40] LABS: ARTERIAL BLD GAS O2 SATURATION 92.9 % (92-100); ARTERIAL BLD GAS TCO2 CT 21.4; ARTERIAL BLOOD GAS BASE EXCESS -3.8 (-2-2); ARTERIAL BLOOD GAS HCO3 20.4 meq/L (22-26); ARTERIAL BLOOD GAS PCO2 34.1 mmHg (35-45); ARTERIAL BLOOD GAS PO2 64.7 mmHg (80-100); ARTERIAL BLOOD GAS pH 7.39 (7.35-7.45)
[2020-11-10 19:42] VITALS: BP 109/46; PULSE 89; TEMP 98.6
[2020-11-10 23:18] VITALS: BP 117/46; PULSE 65; TEMP 97.3
[2020-11-11 03:52] VITALS: BP 120/49; PULSE 80; TEMP 98.3
[2020-11-11 06:58] LABS: BASO % 0.2 % (0.0-2.0); GRAN # 17.1 (1.4-6.5); GRAN % 88.5 % (42.2-75.2); HEMOGLOBIN 10.2 g/dl (12.5-16.0); LYMPH # 1.4 (1.2-3.4); LYMPH % 7.4 % (20.0-51.0); MEAN CELL VOLUME 84 fl (80.0-100.0); MEAN CORPUSCULAR HEMOGLOBIN 26 pg (27.0-31.0); MEAN CORPUSCULAR HGB CONC 31 g/dl (33.0-37.0); MEAN PLATELET VOLUME 12.2 fl (7.4-10.4); MONO # 0.6 (0.1-0.6); MONO % 2.8 % (1.7-9.3); PLATELET COUNT 272 K/mm3 (130-400); RED BLOOD COUNT 3.87 M/mm3 (4.10-5.30); REDCELL DISTRIBUTION WIDTH-CV 15.1 % (11.5-14.5)
[2020-11-11 07:07] LABS: HEMATOCRIT 32.6 % (37.0-47.0)
[2020-11-11 07:13] LABS: CALCIUM 7.9 mg/dL (8.4-10.2); CREATININE, serum 0.87 (0.52-1.25); POTASSIUM 4.2 mmol/L (3.4-5.0)
[2020-11-11 07:21] LABS: PRE ALBUMIN 6.6 mg/dL (17.6-36.0)
[2020-11-11 07:52] VITALS: BP 131/57; PULSE 83; TEMP 98.9
[2020-11-11 10:53] LABS: IRON,SERUM < 10 ug/dL (35-150)
[2020-11-11 11:02] LABS: TOTAL IRON BINDING CAPACITY 231 ug/dL (265-497)
[2020-11-11 11:05] VITALS: BP 137/59; PULSE 86; TEMP 99.1
[2020-11-11 17:00] VITALS: BP 152/62; PULSE 93
[2020-11-11 19:46] VITALS: BP 141/62; PULSE 81; TEMP 99.2
[2020-11-11 23:31] VITALS: BP 143/66; PULSE 79; TEMP 99
[2020-11-12 04:10] VITALS: BP 154/61; PULSE 76; TEMP 99.2
[2020-11-12 06:28] LABS: HEMOGLOBIN 10.3 g/dl (12.5-16.0); MEAN CELL VOLUME 83 fl (80.0-100.0); MEAN CORPUSCULAR HEMOGLOBIN 26 pg (27.0-31.0); MEAN CORPUSCULAR HGB CONC 32 g/dl (33.0-37.0); MEAN PLATELET VOLUME 12.6 fl (7.4-10.4); PLATELET COUNT 209 K/mm3 (130-400); RED BLOOD COUNT 3.93 M/mm3 (4.10-5.30); REDCELL DISTRIBUTION WIDTH-CV 15.2 % (11.5-14.5)
[2020-11-12 06:38] LABS: CALCIUM 8.2 mg/dL (8.4-10.2); CREATININE, serum 1.06 (0.52-1.25); POTASSIUM 4.2 mmol/L (3.4-5.0)
[2020-11-12 06:44] LABS: HEMATOCRIT 32.7 % (37.0-47.0)
[2020-11-12 07:14] LABS: BAND 24 % (0-10); LYMPHOCYTE 6 % (20.0-51.0); NEUTROPHILS 68 % (42.0-75.2); NUCLEATED RED BLOOD CELL 1 (0-6)
[2020-11-12 07:15] LABS: PLATELET ESTIMATE NORMAL (NORMAL)
[2020-11-12 07:20] VITALS: BP 142/63; PULSE 77; TEMP 98.8
[2020-11-12 11:27] VITALS: BP 150/67; PULSE 67; TEMP 98.8
[2020-11-12 17:00] VITALS: BP 169/61; PULSE 84; TEMP 98.3
[2020-11-12 23:33] VITALS: BP 176/80; PULSE 112; TEMP 99.6
[2020-11-13 04:13] VITALS: BP 126/58; PULSE 72; TEMP 98.5
[2020-11-13 06:06] LABS: ARTERIAL BLD GAS O2 SATURATION 97.4 % (92-100); ARTERIAL BLD GAS TCO2 CT 21.5; ARTERIAL BLOOD GAS BASE EXCESS -4.7 (-2-2); ARTERIAL BLOOD GAS HCO3 20.3 meq/L (22-26); ARTERIAL BLOOD GAS PCO2 37.3 mmHg (35-45); ARTERIAL BLOOD GAS PO2 115.1 mmHg (80-100); ARTERIAL BLOOD GAS pH 7.35 (7.35-7.45)
[2020-11-13 07:18] LABS: HEMOGLOBIN 10.4 g/dl (12.5-16.0); MEAN CELL VOLUME 84 fl (80.0-100.0); MEAN CORPUSCULAR HEMOGLOBIN 26 pg (27.0-31.0); MEAN CORPUSCULAR HGB CONC 31 g/dl (33.0-37.0); MEAN PLATELET VOLUME 12.6 fl (7.4-10.4); PLATELET COUNT 201 K/mm3 (130-400); RED BLOOD COUNT 3.99 M/mm3 (4.10-5.30); REDCELL DISTRIBUTION WIDTH-CV 15.3 % (11.5-14.5)
[2020-11-13 07:21] LABS: CALCIUM 7.9 mg/dL (8.4-10.2); CREATININE, serum 0.8 (0.52-1.25); POTASSIUM 4.7 mmol/L (3.4-5.0)
[2020-11-13 07:30] VITALS: BP 115/46; PULSE 66; TEMP 98.6
[2020-11-13 07:33] LABS: HEMATOCRIT 33.4 % (37.0-47.0)
[2020-11-13 09:02] LABS: BAND 7 % (0-10); LYMPHOCYTE 6 % (20.0-51.0); NUCLEATED RED BLOOD CELL 1 (0-6); PLATELET ESTIMATE NORMAL (NORMAL)
[2020-11-13 09:03] LABS: ANISOCYTOSIS 1+; METAMYELOCYTE 1 % (0-0); NEUTROPHILS 82 % (42.0-75.2)
[2020-11-13 09:14] LABS: HOWELL-JOLLY BODIES 1+
[2020-11-13 09:16] LABS: HYPOCHROMIA 1+; TARGET CELLS 1+
[2020-11-13 09:18] LABS: SCHISTOCYTES 1+
[2020-11-13 12:15] VITALS: BP 149/71; PULSE 81; TEMP 98.7
[2020-11-13 16:35] VITALS: BP 169/70; PULSE 104; TEMP 98.1
[2020-11-13 20:00] VITALS: PULSE 108
[2020-11-14] VITALS (7 sets, daily range): BP systolic 118–156; BP diastolic 48–60; PULSE 71–89; TEMP 97.4–99.2
[2020-11-14 07:26] LABS: HEMOGLOBIN 10.5 g/dl (12.5-16.0); MEAN CELL VOLUME 86 fl (80.0-100.0); MEAN CORPUSCULAR HEMOGLOBIN 27 pg (27.0-31.0); MEAN CORPUSCULAR HGB CONC 31 g/dl (33.0-37.0); MEAN PLATELET VOLUME 13.2 fl (7.4-10.4); PLATELET COUNT 202 K/mm3 (130-400); RED BLOOD COUNT 3.92 M/mm3 (4.10-5.30); REDCELL DISTRIBUTION WIDTH-CV 15.4 % (11.5-14.5)
[2020-11-14 07:30] LABS: HEMATOCRIT 33.5 % (37.0-47.0)
[2020-11-14 07:38] LABS: CREATININE, serum 0.8 (0.52-1.25); POTASSIUM 4.8 mmol/L (3.4-5.0)
[2020-11-14 08:08] LABS: BAND 5 % (0-10); BASOPHIL 2 % (0-2); LYMPHOCYTE 4 % (20.0-51.0); NEUTROPHILS 83 % (42.0-75.2); PLATELET ESTIMATE NORMAL (NORMAL)
[2020-11-14 08:09] LABS: ANISOCYTOSIS 1+
[2020-11-14 08:10] LABS: TEAR DROP CELLS 1+
[2020-11-14 08:11] LABS: TARGET CELLS 1+
[2020-11-15 04:13] VITALS: BP 132/56; PULSE 77; TEMP 97.5
[2020-11-15 07:52] LABS: MEAN CELL VOLUME 84 fl (80.0-100.0); MEAN CORPUSCULAR HEMOGLOBIN 26 pg (27.0-31.0); MEAN CORPUSCULAR HGB CONC 31 g/dl (33.0-37.0); MEAN PLATELET VOLUME 12.7 fl (7.4-10.4); PLATELET COUNT 262 K/mm3 (130-400); RED BLOOD COUNT 3.85 M/mm3 (4.10-5.30); REDCELL DISTRIBUTION WIDTH-CV 15.3 % (11.5-14.5)
[2020-11-15 08:04] LABS: HEMATOCRIT 32.4 % (37.0-47.0)
[2020-11-15 08:06] LABS: CALCIUM 8.2 mg/dL (8.4-10.2); POTASSIUM 5.5 mmol/L (3.4-5.0)
[2020-11-15 08:34] LABS: BAND 19 % (0-10); LYMPHOCYTE 8 % (20.0-51.0); NEUTROPHILS 72 % (42.0-75.2); NUCLEATED RED BLOOD CELL 1 (0-6); PLATELET ESTIMATE NORMAL (NORMAL); SCHISTOCYTES 1+; TARGET CELLS 1+
[2020-11-15 09:24] VITALS: BP 130/55; PULSE 70; TEMP 97.6
[2020-11-16 09:16] LABS: SJOGRENS SSB 6 U/mL (0-99)
[2020-11-17 12:37] LABS: ANGIOTENSIN CONVERTING ENZYME 6 U/L (16 - 85)
[2020-11-19 06:52] LABS: ANTISCLERODERMA-70 AB XXX
[2020-11-19 06:53] LABS: U1 RNP AUTOANTIBODIES XXX
== END 2020-11-15 21:25 | disposition expired | DRG 871 ==
LOC: COL.ER 11:08 → MEDICAL 13:43
PROVIDERS: Internal Medicine Pulmonary Disease; Personal Emergency Response Attendant; Physician Assistant; ADMIT Internal Medicine
DX: A41.9 Sepsis, unspecified organism (principal); J18.9 Pneumonia, unspecified organism; E43 Unspecified severe protein-calorie malnutrition; J96.01 Acute respiratory failure with hypoxia; C91.10 Chronic lymphocytic leukemia of B-cell type not having achieved remission; D69.3 Immune thrombocytopenic purpura; I50.32 Chronic diastolic (congestive) heart failure; F41.9 Anxiety disorder, unspecified; F32.9 Major depressive disorder, single episode, unspecified; M81.0 Age-related osteoporosis without current pathological fracture; G89.29 Other chronic pain; M54.9 Dorsalgia, unspecified; E11.9 Type 2 diabetes mellitus without complications; D50.9 Iron deficiency anemia, unspecified; E78.5 Hyperlipidemia, unspecified; Z51.5 Encounter for palliative care; I11.0 Hypertensive heart disease with heart failure; M54.2 Cervicalgia; M48.00 Spinal stenosis, site unspecified; H10.9 Unspecified conjunctivitis; Z66 Do not resuscitate; I48.0 Paroxysmal atrial fibrillation; M19.90 Unspecified osteoarthritis, unspecified site; Z20.822 Contact with and (suspected) exposure to COVID-19; J47.9 Bronchiectasis, uncomplicated; I27.20 Pulmonary hypertension, unspecified; Z90.710 Acquired absence of both cervix and uterus; Z79.82 Long term (current) use of aspirin; Z90.89 Acquired absence of other organs; Z68.33 Body mass index [BMI] 33.0-33.9, adult
CPT/HCPCS: 99222-AI; 99232-AI; 99233-AI; 99238; A4314; A9284; J0456; J0692; J0696; J1650; J1756; J1815; J1940; J1956; J2060; J2270; J2920; J3370; J7030; J7040; J7050; Q9967